=== PATIENT | female | born 1965 | race Caucasian/White ===

== ENCOUNTER 2017-11-17 08:55 | Day surgery (SDC) | payer OTHER ==
[~2017-11-17 08:55] MED LIST: CEFAZOLIN 1 GM INJ
[2017-11-17 10:02] LABS: ADD MAN DIFF? NO
[2017-11-17 10:07] LABS: WHITE BLOOD COUNT 8.9 10^3/ul (4.8-10.8)
[2017-11-17 10:07] LABS: BASOPHILS % 0.4 % (0.0-2.0); EOSINOPHILS # 0.2 10^3/ul (0.0-0.5); EOSINOPHILS % 2.7 % (0.0-7.0); HEMOGLOBIN 10.6 g/dl (12.0-16.0); LYMPHOCYTES # 2.1 10^3/ul (0.8-2.9); LYMPHOCYTES % 23.9 % (15.0-51.0); MEAN CORPUSCULAR HEMOGLOBIN 25.2 pg (29.0-33.0); MEAN CORPUSCULAR HGB CONC 30.3 g/dl (32.0-37.0); MEAN CORPUSCULAR VOLUME 83.1 fl (82.0-101.0); MEAN PLATELET VOLUME 11.3 fl (7.4-10.4); MONOCYTE # 0.6 10^3/ul (0.3-0.9); MONOCYTES % 6.3 % (0.0-11.0); NEUTROPHIL # 5.9 10^3/ul (1.6-7.5); NEUTROPHILS % 65.8 % (39.0-77.0); PLATELET COUNT 231 10^3/UL (140-415); RED BLOOD COUNT 4.21 10^6/ul (4.20-5.40)
[2017-11-17] MEDS ORDERED: PROPOFOL 20 ML ×2 (11:27→12:01)
[2017-11-17] MEDS ORDERED: METOCLOPRAMIDE 10 MG INJ (11:27)
[2017-11-17] MEDS ORDERED: MIDAZOLAM 1 MG/ML 2 ML INJ (11:27)
[2017-11-17] MEDS ORDERED: ONDANSETRON 4 MG INJ (11:27)
[2017-11-17] MEDS ORDERED: KETOROLAC 30 MG INJ (11:28)
[2017-11-17] MEDS ORDERED: FENTAnyl 50 MCG/ML VIAL (11:46)
[2017-11-17] MEDS ORDERED: EPHEDrine SULFATE 50 MG/5 ML SYG (11:56)
[2017-11-17] MEDS ORDERED: ONDANSETRON 4 MG INJ IV (12:30)
[2017-11-17] MEDS ORDERED: HYDROmorphONE (0.2 MG/ML) 10ML SYG IV ×3 (12:30)
== END 2017-11-17 13:41 | disposition home or self-care (01) ==
LOC: SDS 08:55
DX: N95.0 Postmenopausal bleeding (principal); I10 Essential (primary) hypertension; E66.01 Morbid (severe) obesity due to excess calories; Z68.42 Body mass index [BMI] 45.0-49.9, adult
CPT/HCPCS: 58120; 85025; 88305